=== PATIENT | male | born 1955 | race Two or more races ===

== ENCOUNTER 2024-01-26 11:59 | Emergency (ER) | payer OTHER ==
[~2024-01-26] VITALS: Ht 180.3 cm; Wt 89.4 kg
[2024-01-26] MEDS ORDERED: LANTUS SOL100 UNIT/1 SQ (12:49)
[2024-01-26] MEDS ORDERED: ZETIA10 MG PO (12:49)
[2024-01-26] MEDS ORDERED: HUMULIN R100 UNIT/1 SUBCUTANEO (12:49)
[2024-01-26] MEDS ORDERED: GLIPIZIDE ER10 MG PO (12:49)
[2024-01-26] MEDS ORDERED: 0.9 % SODIUM CHLORIDE 1,000 ML IV SCH (13:45)
[2024-01-26 14:32] LABS: HEMATOCRIT 39.1 % (39.0-48.0); HEMOGLOBIN 13.4 g/dL (13-16.00); MEAN CELL VOLUME 83.7 fL (80.0-100.00); MEAN CORPUSCULAR HEMOGLOBIN 28.8 pg (27.00-32.0); MEAN CORPUSCULAR HGB CONC 34.4 g/dl (32.0-36.0); PLATELET COUNT 189 K/uL (150-450); RED BLOOD COUNT 4.67 M/uL (4.00-6.00); RED CELL DISTRIBUTION WIDTH 13.7 % (11.5-14.5)
[2024-01-26 15:02] LABS: CALCIUM 9.4 mg/dL (8.5-10.1); CREATININE SERUM 1.51 mg/dL (0.70-1.30); GFR 46.46; POTASSIUM 4.71 mEq/L (3.5-5.1)
[2024-01-26 15:11] LABS: URINE APPEARANCE Clear; URINE BILIRRUBIN Negative (NEGATIVE); URINE BLOOD Negative; URINE COLOR Yellow; URINE KETONE Negative (NEGATIVE); URINE LEUKOCYTE Negative; URINE NITRATE Negative; URINE PROTEIN Negative (NEGATIVE); URINE UROBILINOGEN 0.2 E.U./dl
[2024-01-26 15:18] LABS: URINE BACTERIA 2.5 uL (0.0-1933); URINE GLUCOSE 500 MG/DL (NEGATIVE); URINE RBC 0.3 uL (0.0-20.8); URINE WBC 0.4 uL (0.0-23.2)
[2024-01-26] MEDS ORDERED: INSULIN REGULAR, HUMAN 1,000 UNIT/10 ML UNITS IV STA (15:53)
== END 2024-01-26 18:16 | disposition home or self-care (01) ==
LOC: ER 12:00
PROVIDERS: Emergency Medicine
DX: R73.9 Hyperglycemia, unspecified (principal); R10.9 Unspecified abdominal pain
CPT/HCPCS: 36415; 74177; 96365; 96366; 99284; J7030; Q9965

== ENCOUNTER 2024-07-25 14:38 | Emergency (ER) | payer OTHER ==
[~2024-07-25] VITALS: Ht 182.9 cm; Wt 90.7 kg
[~2024-07-25 14:38] MED LIST: GLIPIZIDE ER10 MG PO; HUMULIN R100 UNIT/1 SUBCUTANEO; LANTUS SOL100 UNIT/1 SQ; ZETIA10 MG PO
[2024-07-25] MEDS ORDERED: LOSARTAN POTASS50 MG PO (15:16)
[2024-07-25] MEDS ORDERED: EZETIMIBE10 MG PO (15:18)
[2024-07-25] MEDS ORDERED: ACETAMINOPHEN500 M2 PO (19:30)
== END 2024-07-25 19:57 | disposition home or self-care (01) ==
LOC: ER 14:41
DX: M54.50 Low back pain, unspecified (principal)

== ENCOUNTER 2024-12-09 06:10 | Emergency (ER) | payer OTHER ==
[~2024-12-09] VITALS: Ht 180.3 cm; Wt 87.1 kg
[~2024-12-09 06:10] MED LIST changes: +ACETAMINOPHEN500 M2 PO; +EZETIMIBE10 MG PO; +LOSARTAN POTASS50 MG PO
[2024-12-09] MEDS ORDERED: ADMELOG100 UNIT/1 (06:28)
[2024-12-09] MEDS ORDERED: SYNJARDY 5-5001 EACH PO (06:28)
[2024-12-09] MEDS ORDERED: GUAIFENESIN/DEXTROMETHORPHAN 100MG/10ML BLIST.PACK PO ONE (08:29)
[2024-12-09] MEDS ORDERED: GUAIFEN/DEXTROMETHORPHAN/PE 10 ML BLIST.PACK PO ONE (08:30)
[2024-12-09 09:09] LABS: BASO % 0.6 % (0.1-1.2); EOS # 0.11 (0.04-0.54); EOS % 1.3 % (0.7-7.0); HEMATOCRIT 43.1 % (40.1-51.0); HEMOGLOBIN 13.9 g/dL (13.7-17.5); LYMPH # 2.48 (1.18-3.74); LYMPH % 29.1 % (19.3-53.1); MEAN CORPUSCULAR HEMOGLOBIN 27.5 pg (25.6-32.2); MONO # 0.94 (0.24-0.82); NEUT # 4.91 (1.56-6.13); NEUT % 57.8 % (34.0-71.1); PLATELET COUNT 269 K/uL (163-369); RED BLOOD COUNT 5.05 M/uL (4.63-6.08); RED CELL DISTRIBUTION WIDTH 13.3 % (11.6-14.4)
[2024-12-09 09:36] LABS: ALBUMIN 3.7 gm/dL (3.4-5.0); BILIRUBIN TOTAL 0.3 mg/dL (0.3-1.2); CALCIUM 9.3 mg/dL (8.5-10.1); CREATININE SERUM 1.32 mg/dL (0.70-1.30); GFR 54.1; POTASSIUM 4.45 mEq/L (3.5-5.1); TOTAL PROTEIN 7.7 gm/dL (6.4-8.2)
[2024-12-09 09:52] LABS: COVID-19 AG NEGATIVE (NEGATIVE); INFLUENZA A AG NEGATIVE (NEGATIVE); INFLUENZA B AG NEGATIVE (NEGATIVE)
== END 2024-12-09 10:55 | disposition home or self-care (01) ==
LOC: ER 06:16
PROVIDERS: Emergency Medicine
DX: Z52.4 Kidney donor (principal); E11.9 Type 2 diabetes mellitus without complications; J40 Bronchitis, not specified as acute or chronic; R05.9 Cough, unspecified; Z20.822 Contact with and (suspected) exposure to COVID-19